=== PATIENT | female | born 1960 | race Caucasian/White ===

== ENCOUNTER 2018-09-01 16:06 | Emergency (ER) | payer OTHER ==
[2018-09-01] MEDS ORDERED: KETOROLAC TROMETHAMINE 60 MG/2 ML VIAL IM ONE (16:17)
[2018-09-01 16:36] VITALS: BP 167/94
--- NOTE | 2018-09-01 17:17 | ED Physician Documentation ---
General Adult - HISTORIAN Historian: patient - HPI Stated Complaint: L Rib pain Chief Complaint: General Adult Further Comments: yes (58 year old female patient presents with complaint of left rib pain after bending over the arm rest in the car, state her rib "popped" today causing increased pain. Has not taken any pain medication, denies cough or fever.) - ROS CONST: no problems EYES/ENT: none CVS/RESP: none GI/: none MS/SKIN/LYMPH: none NEURO/PSYCH: denies: headache - PAST HX Past History: none Other History: none Allergies/Adverse Reactions: Allergies Allergy/AdvReac Type Severity Reaction Status Date / Time Penicillins AdvReac Intermediate Hives Verified 09/01/18 16:16 - SOCIAL HX Smoking History: cigarettes - FAMILY HX Family History: No - VITAL SIGNS Vital Signs: Vital Signs Temp Pulse Resp BP Pulse Ox 71 15 167/94 99 09/01/18 16:10 09/01/18 16:10 09/01/18 16:10 09/01/18 16:10 - REVIEWED ASSESSMENTS Nursing Assessment Reviewed: Yes Vitals Reviewed: Yes ED Results Lab/Radiology - Radiology Radiology Impressions: HISTORY: 58 year-old female with left chest wall pain after twisting injury 3 days ago. COMPARISON: None available. TECHNIQUE: Frontal view of the chest and multiple views of the left ribs were performed. FINDINGS: No pneumothorax, pulmonary edema, or consolidative infiltrates. There are calcified lymph nodes in the AP window. The heart is not enlarged. No evidence of rib or clavicular fracture. There is moderate thoracic degenerative disc disease. IMPRESSION: 1. No evidence of left rib fracture. 2. Old granulomatous disease of the chest without evidence of acute intrathoracic process. Electronically signed on Sep 01, 2018 5:04:26 PM WASHATERIA ATTENDANT by: Robert Liu - Orders Orders: ED Orders Category Date Time Status RIBS UNILATERAL W/ PA CHEST [RAD] Stat Exams 09/01/18 Ordered Ketorolac Tromethamine [Toradol] Med 09/01/18 16:17 Discontinued 60 mg IM NOW ONE General Adult Physical Exam - PHYSICAL EXAM GENERAL APPEARANCE: [id number] N EENT: eye inspection normal, PAM RESPIRATORY: no resp distress, breath sounds normal, other (chest wall tenderness over rib 5 and 6 area of left chest wall. ) CVS: reg rate & rhythm, heart sounds normal, equal pulses, no murmur, no gallop, PMI nml, no JVD, no friction rub, 24 ABDOMEN: soft, no organomegaly, normal bowel sounds, no abdominal bruit, no distension SKIN: normal color, warm/dry, NR, INT, PAL, DR EXTREMITIES: non-tender, normal range of motion, no evidence of injury, no edema, J, [employer] NEURO: oriented X3, CN's nml as tested, motor nml, sensation nml, mood/affect nml Discharge Clincal Impression: Rib contusion Qualifiers: Encounter type: initial encounter Laterality: left Qualified Code(s): S20.212A - Contusion of left front wall of thorax, initial encounter Referrals: Batsheva Danielle MD [Primary Care Provider] - 2 Days Additional Instructions: Ice Rest Elevation You may use Tylenol every 4hour as needed for pain. Limit your dose to less than 4 G per day. Alternate with Ibuprofen 600-800mg three times a day with food as needed. Do not take for more than 5 days in a row. See your doctor if you develop a productive cough with fever. Condition: Stable Disposition: 01 HOME, SELF-CARE Decision to Admit: NO Decision Time: 17:16
--- NOTE | 2018-09-01 18:12 | Diagnostic Imaging Report ---
HAYLEY HERNANDEZ (CLOTH STOCK SORTER) - ER [facility] [id number] [facility] [id number] Report Submission Date: Sep 01, 2018 5:04:26 PM [employer]INE [employer] TECHNICIAN Patient Study Name: LIAN JIM Date: Sep 01, 2018 4:21:39 PM [employer] TECHNICIAN Modality Type: DX Gender: F Description: CHEST : 60 Institution: [facility] Physician: HAYLEY HERNANDEZ (JENNA) - ER HISTORY: 58 year-old female with left chest wall pain after twisting injury 3 days ago. COMPARISON: None available. TECHNIQUE: Frontal view of the chest and multiple views of the left ribs were performed. FINDINGS: No pneumothorax, pulmonary edema, or consolidative infiltrates. There are calcified lymph nodes in the AP window. The heart is not enlarged. No evidence of rib or clavicular fracture. There is moderate thoracic degenerative disc disease. IMPRESSION: 1. No evidence of left rib fracture. 2. Old granulomatous disease of the chest without evidence of acute intrathoracic process. Electronically signed on Sep 01, 2018 5:04:26 PM [employer] TECHNICIAN by: Robert SOLIZ
== END 2018-09-01 17:22 | disposition home or self-care (01) ==
LOC: ED 16:06
DX: S20.212A Contusion of left front wall of thorax, initial encounter (principal); X58.XXXA Exposure to other specified factors, initial encounter; Y93.89 Activity, other specified; Y92.810 Car as the place of occurrence of the external cause; Z72.0 Tobacco use
CPT/HCPCS: 71101; 99282; 99283